=== PATIENT | female | born 1950 | race Two or more races ===

== ENCOUNTER 2024-02-19 06:05 | Day surgery (SDC) | payer MEDICARE, BC ==
[~2024-02-19] VITALS: Ht 152.4 cm; Wt 45.4 kg
[~2024-02-19 06:05] MED LIST: LEV50T PO
[2024-02-19] MEDS ORDERED: LIDOCAINE 2% JELLY 11ml (GLYDO) ONE (06:49)
[2024-02-19] MEDS ORDERED: SUCCINYLCHOLINE CHLORIDE 20 MG/ML 10ML VIAL IV ONE (06:59)
[2024-02-19] MEDS ORDERED: ROCURONIUM 10MG/ML 10ML VIAL IV ONE (06:59)
[2024-02-19] MEDS ORDERED: BUPIVACAINE 0.5% P/F INJ 10 ML VIAL ONE (07:10)
[2024-02-19] MEDS ORDERED: EPINEPHrine HCL 1 MG/1 ML AMP ONE (07:11)
[2024-02-19] MEDS ORDERED: ONDANSETRON HCL 4 MG/2 ML VIAL ONE (07:11)
[2024-02-19] MEDS ORDERED: PROPOFOL 10 MG/ML 20 ML IV ONE (07:11)
[2024-02-19] MEDS ORDERED: MIDAZOLAM HCL 2MG/2ML 2ml VIAL (1mg/ml) ONE (07:11)
[2024-02-19] MEDS ORDERED: SODIUM CHLORIDE LOCK 10 ML ONE (07:11)
[2024-02-19] MEDS ORDERED: fentaNYL CITRATE 100 MCG/2 ML VL ONE (07:11)
[2024-02-19] MEDS ORDERED: LIDOCAINE 1% INJ PF 5ML AMP ONE (07:11)
[2024-02-19] MEDS ORDERED: CLINDAMYCIN 600MG IV 50 ML IV ONE (07:20)
[2024-02-19 08:14] VITALS: PULSE 53; RESP 17; O2SAT 100
[2024-02-19] MEDS ORDERED: fentaNYL CITRATE 100 MCG/2 ML VL IV PRN (08:15)
[2024-02-19] MEDS ORDERED: METOCLOPRAMIDE HCL 5MG/ml INJ 2ml VIAL IV ONE (08:15)
[2024-02-19] MEDS ORDERED: KETOROLAC TROMETH 30 MG/ML 1ML VIAL IV ONE (08:15)
[2024-02-19] MEDS ORDERED: MORPHINE SULFATE INJ 2 MG/ml SYRG IV PRN (08:15)
[2024-02-19] MEDS ORDERED: HYDROmorphone HCL 2 MG/ML VL/or syr IV PRN ×2 (08:15)
[2024-02-19 11:59] VITALS: BP 127/66; PULSE 67; RESP 13; O2SAT 99
== END 2024-02-19 12:25 | disposition home or self-care (01) ==
LOC: SUR 06:05
PROVIDERS: ATTEND Surgery Vascular Surgery
DX: I83.812 Varicose veins of left lower extremity with pain (principal); K21.9 Gastro-esophageal reflux disease without esophagitis; E03.9 Hypothyroidism, unspecified; Z88.0 Allergy status to penicillin; Z79.899 Other long term (current) drug therapy; Z98.890 Other specified postprocedural states; Z90.710 Acquired absence of both cervix and uterus; Z90.49 Acquired absence of other specified parts of digestive tract; Z79.890 Hormone replacement therapy; Z86.73 Personal history of transient ischemic attack (TIA), and cerebral infarction without residual deficits
CPT/HCPCS: 37765; 86850; 86900; 86901; J0171; J0330; J2250; J2405; J2704; J3010; J3490